=== PATIENT | female | born 1940 | race Caucasian/White ===

== ENCOUNTER → 2020-06-13 | Outpatient (CLI) | payer MEDICARE ==
[~2020-06-13] MED LIST: ASPI-650 PO; GLIM2TAB PO; INSU100V13 SC; INSU3INS SQ; LACT1CAP44 PO; LEVO750T26 PO; LOSA50TA14 PO; METF500T17 PO; ROSU10TA2 PO; SIMV40TA20 PO
== END | disposition home or self-care (01) ==
LOC: WOUND 12:43
PROVIDERS: ATTEND Podiatrist Foot & Ankle Surgery
DX: S91.101A Unspecified open wound of right great toe without damage to nail, initial encounter (principal); S91.102A Unspecified open wound of left great toe without damage to nail, initial encounter; I10 Essential (primary) hypertension; E78.5 Hyperlipidemia, unspecified; E66.9 Obesity, unspecified; E11.628 Type 2 diabetes mellitus with other skin complications; R32 Unspecified urinary incontinence; G90.521 Complex regional pain syndrome I of right lower limb; I70.0 Atherosclerosis of aorta; Z88.0 Allergy status to penicillin; Z90.49 Acquired absence of other specified parts of digestive tract; Z79.82 Long term (current) use of aspirin; Z79.899 Other long term (current) drug therapy; Z86.73 Personal history of transient ischemic attack (TIA), and cerebral infarction without residual deficits; X58.XXXA Exposure to other specified factors, initial encounter; Y92.89 Other specified places as the place of occurrence of the external cause; Y93.89 Activity, other specified; Y99.8 Other external cause status
CPT/HCPCS: G0463

== ENCOUNTER 2020-10-21 09:42 | Emergency (ER) | payer MEDICARE ==
[~2020-10-21] VITALS: Ht 157.5 cm; Wt 97.4 kg
--- NOTE | 2020-10-21 09:55 | NUR ---
BS REPORT GIVEN TO ETELVINA
[2020-10-21] MEDS ORDERED: SODIUM CHLORIDE FLUSH 10ML SYR IVF ONE (10:00)
--- NOTE | 2020-10-21 10:23 | NUR ---
EKG COMPLETE. X RAY COMPLETE. WARM BLANKETS PROVIDED. PT EDUCATED ON PLAN OF CARE. PT TO CT AT THIS TIME
[2020-10-21 10:56] LABS: BASOPHILS % (AUTO) 1 % (0-1); EOSINOPHILS % (AUTO) 1 % (1-7); LYMPHOCYTES % (AUTO) 31 % (22-44); MD NO; MEAN CORPUSCULAR HEMOGLOBIN 30.6 pg (27.0-34.8); MEAN CORPUSCULAR HGB CONC 33.6 g/dL (32.4-35.8); MONOCYTES % (AUTO) 6 % (2-9); NEUTROPHILS % (AUTO) 61 % (42-75); PLATELET COUNT 204 x10^3/uL (130-400); RED BLOOD COUNT 4.57 x10^6/uL (3.82-5.3); RED CELL DISTRIBUTION WIDTH 13.1 % (9.6-15.2)
--- NOTE | 2020-10-21 10:56 | NUR ---
PT RESTING ON GURNEY. DAUGHTER AT BEDSIDE. VSS. NAD
[2020-10-21 11:06] LABS: ALBUMIN 3.2 g/dL (3.4-5.0); ANION GAP 8 mmol/L (5-15); CALCIUM 8.7 mg/dL (8.5-10.1); CHLORIDE 110 mmol/L (98-107); CREATININE 0.75 mg/dL (0.55-1.02)
[2020-10-21 12:50] VITALS: BP 136/68
== END 2020-10-21 12:54 | disposition home or self-care (01) ==
LOC: ED 11:58
DX: G44.209 Tension-type headache, unspecified, not intractable (principal); R50.9 Fever, unspecified; R94.31 Abnormal electrocardiogram [ECG] [EKG]; E11.9 Type 2 diabetes mellitus without complications; Z86.73 Personal history of transient ischemic attack (TIA), and cerebral infarction without residual deficits
CPT/HCPCS: 36415; 70450; 71045; 76380; 80048; 82040; 83605; 85025; 87040; 93005; 99285